=== PATIENT | male | born 1955 | race Caucasian/White ===

== ENCOUNTER 2023-01-17 19:06 | Inpatient (IN) | payer OTHER ==
[~2023-01-17] VITALS: Ht 190.5 cm; Wt 97.5 kg
[2023-01-17 20:02] VITALS: BP 112/59; PULSE 98; RESP 18; TEMP 102.1; O2SAT 97
[2023-01-17] MEDS ORDERED: ACETAMINOPHEN 325 MG TAB PO ONE ×3 (20:15→20:35)
[2023-01-17] MEDS ORDERED: ACETAMINOPHEN EXTRA STRENGTH 500 MG TAB ONE (20:19)
[2023-01-17] MEDS ORDERED: VANCOMYCIN 1,000 MG in DEXTROSE 5% 250 ML IV ONE (20:50)
[2023-01-17] MEDS ORDERED: NACL 0.9% 2,000 ML IV ONE (21:25)
[2023-01-17] MEDS ORDERED: cefTRIAXone 1,000 MG VIAL ONE (21:41)
[2023-01-17 21:42] LABS: BASOPHILS % (AUTO) 0.3 % (0.0-2.0); EOSINOPHILS % (AUTO) 0.1 % (0.0-4.0); HEMATOCRIT 34.9 % (36-52); HEMOGLOBIN 11.6 g/dL (12.0-18.0); LYMPHOCYTES # (AUTO) 0.3 K/uL (2.0-11.5); LYMPHOCYTES % (AUTO) 4.9 % (20.5-51.1); MEAN CORPUSCULAR HEMOGLOBIN 28 pg (27-31); MEAN CORPUSCULAR HGB CONC 33 g/dL (33-37); MEAN CORPUSCULAR VOLUME 83.2 fL (80-94); MONOCYTES # (AUTO) 0.5 K/uL (0.8-1.0); MONOCYTES % (AUTO) 7.4 % (1.7-9.3); NEUTROPHILS # (AUTO) 5.5 K/uL (1.8-7.7); NEUTROPHILS % (AUTO) 87.3 % (42.2-75.2); PLATELET COUNT (AUTO) 230 K/uL (140-450); RED CELL DISTRIBUTION WIDTH 14.2 % (11.6-13.7); WHITE BLOOD COUNT (AUTO) 6.3 K/uL (4.8-10.8)
[2023-01-17 22:08] LABS: ALBUMIN 2.6 g/dL (3.4-5.0); ANION GAP 20.8 (8-16); CALCIUM 8.3 mg/dL (8.5-10.1); CARBON DIOXIDE 19.3 mmol/L (21-32); CREATININE 1.3 mg/dL (0.6-1.3); POTASSIUM 4.1 mmol/L (3.5-5.1); TOTAL BILIRUBIN 0.8 mg/dL (0.0-1.0); TOTAL PROTEIN, SERUM 7.3 g/dL (6.4-8.2)
[2023-01-17] MEDS ORDERED: VANCOMYCIN 1,000 MG VIAL ONE (22:15)
[2023-01-17 22:19] LABS: LACTIC ACID 2.2 mmol/L (0.4-2.0)
[2023-01-17] MEDS ORDERED: MAGNESIUM OXIDE 400 MG TAB PO PRN (22:35)
[2023-01-17] MEDS ORDERED: ACETAMINOPHEN 325 MG TAB PO PRN (22:35)
[2023-01-17] MEDS ORDERED: MAG SULF 2000 MG/WATER PREMIX 50 ML IV PRN (22:35)
[2023-01-17] MEDS ORDERED: ONDANSETRON 4 MG/2 ML VIAL IVP PRN (22:35)
[2023-01-17] MEDS ORDERED: KCL 20 MEQ IN 100 mL PREMIX 200 ML IV PRN (22:35)
[2023-01-17] MEDS ORDERED: POTASSIUM CHLORIDE 10 MEQ TABER PO PRN (22:35)
[2023-01-17] MEDS ORDERED: VANCOMYCIN PER PHARMACY MC PRN (22:35)
[2023-01-17] MEDS ORDERED: DEXTROSE 50% 50 ML SYR IVP PRN (22:45)
[2023-01-17] MEDS: NACL 0.9% 1,000 ML IV SCH (23:00)
[2023-01-18] MEDS: HYDROcodone/APAP 5/325 MG 1 TAB TAB PO PRN ×2 (00:22→04:23)
[2023-01-18 07:25] LABS: BASOPHILS % (AUTO) 0.3 % (0.0-2.0); HEMATOCRIT 32.8 % (36-52); HEMOGLOBIN 10.9 g/dL (12.0-18.0); LYMPHOCYTES # (AUTO) 0.2 K/uL (2.0-11.5); LYMPHOCYTES % (AUTO) 4.7 % (20.5-51.1); MEAN CORPUSCULAR HEMOGLOBIN 28 pg (27-31); MEAN CORPUSCULAR HGB CONC 33 g/dL (33-37); MEAN CORPUSCULAR VOLUME 83.4 fL (80-94); MONOCYTES # (AUTO) 0.5 K/uL (0.8-1.0); NEUTROPHILS # (AUTO) 4.1 K/uL (1.8-7.7); PLATELET COUNT (AUTO) 182 K/uL (140-450); RED BLOOD CELL COUNT(AUTO) 3.93 MIL/uL (4.20-6.10); RED CELL DISTRIBUTION WIDTH 14.3 % (11.6-13.7); WHITE BLOOD COUNT (AUTO) 4.8 K/uL (4.8-10.8)
[2023-01-18] MEDS: BLOOD GLUCOSE MONITORING 1 DEV DEV FS SCH ×4 (07:30→21:00)
[2023-01-18 08:25] LABS: ALBUMIN 2.2 g/dL (3.4-5.0); ANION GAP 19.5 (8-16); CALCIUM 7.6 mg/dL (8.5-10.1); CARBON DIOXIDE 18.4 mmol/L (21-32); MAGNESIUM 1.8 mg/dL (1.8-2.4); POTASSIUM 3.9 mmol/L (3.5-5.1); TOTAL BILIRUBIN 0.5 mg/dL (0.0-1.0); TOTAL PROTEIN, SERUM 6.4 g/dL (6.4-8.2)
[2023-01-18] MEDS: MORPHINE SULFATE 4 MG/ML SYR IVP PRN ×2 (08:36→17:43)
[2023-01-18] MEDS: NACL 0.9% 1,000 ML IV SCH ×2 (11:05→23:35)
[2023-01-18] MEDS ORDERED: VANCOMYCIN 1,000 MG VIAL ONE ×2 (11:22→23:15)
[2023-01-18] MEDS: VANCOMYCIN 1,000 MG in DEXTROSE 5% 250 ML IV SCH ×2 (12:00→23:00)
[2023-01-18] MEDS: INSULIN LISPRO SLIDING SCALE 100 UNITS/ML VIAL SUBQ PRN ×3 (12:15→22:36)
[2023-01-19] MEDS ORDERED: PIPERACILLIN/TAZOBACTAM 3.375 GM VIAL IV ONE ×2 (00:01→06:16)
[2023-01-19] MEDS: PIPERACILLIN/TAZOBACTAM 3.375 GM in DEXTROSE 5% 50 ML IV SCH ×5 (00:25→23:33)
[2023-01-19] MEDS: MORPHINE SULFATE 4 MG/ML SYR IVP PRN ×6 (00:26→23:30)
[2023-01-19 07:52] LABS: BASOPHILS % (AUTO) 0.1 % (0.0-2.0); HEMATOCRIT 33.9 % (36-52); HEMOGLOBIN 11.3 g/dL (12.0-18.0); LYMPHOCYTES # (AUTO) 0.4 K/uL (2.0-11.5); LYMPHOCYTES % (AUTO) 7.1 % (20.5-51.1); MEAN CORPUSCULAR HEMOGLOBIN 28 pg (27-31); MEAN CORPUSCULAR HGB CONC 33 g/dL (33-37); MEAN CORPUSCULAR VOLUME 83.1 fL (80-94); MONOCYTES # (AUTO) 0.8 K/uL (0.8-1.0); MONOCYTES % (AUTO) 14.4 % (1.7-9.3); NEUTROPHILS # (AUTO) 4.5 K/uL (1.8-7.7); NEUTROPHILS % (AUTO) 78.4 % (42.2-75.2); PLATELET COUNT (AUTO) 187 K/uL (140-450); RED BLOOD CELL COUNT(AUTO) 4.07 MIL/uL (4.20-6.10); RED CELL DISTRIBUTION WIDTH 14.4 % (11.6-13.7); WHITE BLOOD COUNT (AUTO) 5.8 K/uL (4.8-10.8)
[2023-01-19 08:00] VITALS: RESP 18; O2SAT 98
[2023-01-19] MEDS: INSULIN LISPRO SLIDING SCALE 100 UNITS/ML VIAL SUBQ PRN ×2 (08:00→20:22)
[2023-01-19] MEDS: BLOOD GLUCOSE MONITORING 1 DEV DEV FS SCH ×4 (08:13→20:25)
[2023-01-19 08:16] LABS: ALBUMIN 2.2 g/dL (3.4-5.0); ANION GAP 18.9 (8-16); CALCIUM 8.2 mg/dL (8.5-10.1); CARBON DIOXIDE 19.9 mmol/L (21-32); CREATININE 0.9 mg/dL (0.6-1.3); MAGNESIUM 1.9 mg/dL (1.8-2.4); POTASSIUM 3.8 mmol/L (3.5-5.1); TOTAL BILIRUBIN 0.6 mg/dL (0.0-1.0)
[2023-01-19 08:51] LABS: TOTAL PROTEIN, SERUM 6.4 g/dL (6.4-8.2)
[2023-01-19] MEDS: NACL 0.9% 1,000 ML IV SCH ×2 (12:05→23:34)
[2023-01-19 16:00] VITALS: BP 132/77; PULSE 79; RESP 18; TEMP 97.7; O2SAT 94
[2023-01-19] MEDS: VANCOMYCIN 1.25GM PREMIX 250 ML IV SCH (16:49)
[2023-01-19 20:00] VITALS: BP 130/70; PULSE 77; RESP 18; TEMP 97.6; O2SAT 97
[2023-01-19] MEDS: HYDROcodone/APAP 5/325 MG 1 TAB TAB PO PRN (20:04)
[2023-01-20] MEDS: VANCOMYCIN 1.25GM PREMIX 250 ML IV SCH ×2 (01:15→12:56)
[2023-01-20] MEDS: MORPHINE SULFATE 4 MG/ML SYR IVP PRN ×4 (03:49→21:11)
[2023-01-20] MEDS: PIPERACILLIN/TAZOBACTAM 3.375 GM in DEXTROSE 5% 50 ML IV SCH ×3 (05:11→18:27)
[2023-01-20] MEDS: HYDROcodone/APAP 5/325 MG 1 TAB TAB PO PRN ×3 (05:12→18:51)
[2023-01-20 06:00] LABS: BASOPHILS % (AUTO) 0.2 % (0.0-2.0); EOSINOPHILS % (AUTO) 0.3 % (0.0-4.0); HEMATOCRIT 32.9 % (36-52); LYMPHOCYTES # (AUTO) 0.5 K/uL (2.0-11.5); LYMPHOCYTES % (AUTO) 7.9 % (20.5-51.1); MEAN CORPUSCULAR HEMOGLOBIN 28 pg (27-31); MEAN CORPUSCULAR HGB CONC 33 g/dL (33-37); MEAN CORPUSCULAR VOLUME 83.3 fL (80-94); MONOCYTES # (AUTO) 0.9 K/uL (0.8-1.0); MONOCYTES % (AUTO) 14.9 % (1.7-9.3); NEUTROPHILS # (AUTO) 4.7 K/uL (1.8-7.7); NEUTROPHILS % (AUTO) 76.7 % (42.2-75.2); PLATELET COUNT (AUTO) 195 K/uL (140-450); RED BLOOD CELL COUNT(AUTO) 3.96 MIL/uL (4.20-6.10); RED CELL DISTRIBUTION WIDTH 14.5 % (11.6-13.7); WHITE BLOOD COUNT (AUTO) 6.1 K/uL (4.8-10.8)
[2023-01-20 06:06] LABS: ANION GAP 16.1 (8-16); CALCIUM 8.1 mg/dL (8.5-10.1); CARBON DIOXIDE 21.8 mmol/L (21-32); CREATININE 0.8 mg/dL (0.6-1.3); MAGNESIUM 1.8 mg/dL (1.8-2.4); POTASSIUM 3.9 mmol/L (3.5-5.1); TOTAL BILIRUBIN 0.6 mg/dL (0.0-1.0); TOTAL PROTEIN, SERUM 6.2 g/dL (6.4-8.2)
[2023-01-20] MEDS: BLOOD GLUCOSE MONITORING 1 DEV DEV FS SCH ×4 (06:17→20:55)
[2023-01-20 08:00] VITALS: BP 139/73; PULSE 84; RESP 20; TEMP 98.9; O2SAT 91
[2023-01-20 09:03] VITALS: PULSE 72; RESP 20; O2SAT 99
[2023-01-20] MEDS: NACL 0.9% 1,000 ML IV SCH (12:57)
[2023-01-20 16:00] VITALS: BP 149/76; PULSE 83; RESP 20; TEMP 97.8; O2SAT 91
[2023-01-20] MEDS: INSULIN LISPRO SLIDING SCALE 100 UNITS/ML VIAL SUBQ PRN ×2 (16:58→21:09)
[2023-01-20] MEDS: CYCLOBENZAPRINE 10 MG TAB PO SCH (17:10)
[2023-01-20 20:00] VITALS: BP 153/69; PULSE 92; PULSE 97; RESP 17; TEMP 98.3; O2SAT 95; O2SAT 98
[2023-01-21] VITALS: BP 140/63; PULSE 92; RESP 17; TEMP 98.5; O2SAT 98
[2023-01-21] MEDS: NACL 0.9% 1,000 ML IV SCH ×2 (01:35→14:05)
[2023-01-21] MEDS: VANCOMYCIN 1.25GM PREMIX 250 ML IV SCH (03:34)
[2023-01-21] MEDS: MORPHINE SULFATE 4 MG/ML SYR IVP PRN ×2 (03:41→09:46)
[2023-01-21 04:00] VITALS: BP 160/73; PULSE 92; RESP 17; TEMP 98.5; O2SAT 95
[2023-01-21] MEDS: PIPERACILLIN/TAZOBACTAM 3.375 GM in DEXTROSE 5% 50 ML IV SCH ×5 (05:03→18:32)
[2023-01-21] MEDS: HYDROcodone/APAP 5/325 MG 1 TAB TAB PO PRN ×2 (05:05→15:15)
[2023-01-21 06:01] LABS: BASOPHILS % (AUTO) 0.3 % (0.0-2.0); EOSINOPHILS # (AUTO) 0.1 K/uL (0-0.4); EOSINOPHILS % (AUTO) 0.8 % (0.0-4.0); HEMOGLOBIN 10.9 g/dL (12.0-18.0); LYMPHOCYTES # (AUTO) 0.8 K/uL (2.0-11.5); LYMPHOCYTES % (AUTO) 12.6 % (20.5-51.1); MEAN CORPUSCULAR HEMOGLOBIN 27 pg (27-31); MEAN CORPUSCULAR HGB CONC 33 g/dL (33-37); MEAN CORPUSCULAR VOLUME 82.6 fL (80-94); MONOCYTES # (AUTO) 0.8 K/uL (0.8-1.0); MONOCYTES % (AUTO) 13.3 % (1.7-9.3); NEUTROPHILS # (AUTO) 4.6 K/uL (1.8-7.7); PLATELET COUNT (AUTO) 217 K/uL (140-450); RED CELL DISTRIBUTION WIDTH 14.8 % (11.6-13.7); WHITE BLOOD COUNT (AUTO) 6.4 K/uL (4.8-10.8)
[2023-01-21] MEDS: BLOOD GLUCOSE MONITORING 1 DEV DEV FS SCH ×4 (06:11→21:29)
[2023-01-21 06:35] LABS: ANION GAP 17.3 (8-16); CALCIUM 8.5 mg/dL (8.5-10.1); CARBON DIOXIDE 21.4 mmol/L (21-32); CREATININE 0.8 mg/dL (0.6-1.3); MAGNESIUM 1.6 mg/dL (1.8-2.4); POTASSIUM 3.7 mmol/L (3.5-5.1); TOTAL BILIRUBIN 0.7 mg/dL (0.0-1.0); TOTAL PROTEIN, SERUM 6.1 g/dL (6.4-8.2)
[2023-01-21 08:00] VITALS: BP 148/75; PULSE 84; RESP 20; TEMP 97.8; O2SAT 89; O2SAT 95
[2023-01-21] MEDS: CYCLOBENZAPRINE 10 MG TAB PO SCH ×2 (09:32→13:05)
[2023-01-21] MEDS ORDERED: CRUSHER, PILL MC ONE (09:35)
[2023-01-21] MEDS: INSULIN LISPRO SLIDING SCALE 100 UNITS/ML VIAL SUBQ PRN ×2 (12:53→21:34)
[2023-01-21 20:00] VITALS: BP 141/73; PULSE 87; RESP 17; RESP 18; TEMP 98.6; O2SAT 95; O2SAT 98
[2023-01-21] MEDS ORDERED: VANCOMYCIN 1,000 MG VIAL ONE (21:22)
[2023-01-21] MEDS: carisoprodoL 350 MG TAB PO SCH (21:24)
[2023-01-21] MEDS: MAGNESIUM OXIDE 400 MG TAB PO SCH (21:25)
[2023-01-21] MEDS: VANCOMYCIN 1,000 MG in DEXTROSE 5% 250 ML IV SCH (21:39)
[2023-01-22] MEDS: PIPERACILLIN/TAZOBACTAM 3.375 GM in DEXTROSE 5% 50 ML IV SCH ×4 (00:02→18:15)
[2023-01-22] MEDS: HYDROcodone/APAP 5/325 MG 1 TAB TAB PO PRN ×2 (02:52→14:26)
[2023-01-22] MEDS: NACL 0.9% 1,000 ML IV SCH ×2 (02:56→15:05)
[2023-01-22] MEDS: MORPHINE SULFATE 4 MG/ML SYR IVP PRN (03:37)
[2023-01-22 04:00] VITALS: BP 157/80; PULSE 89; RESP 20; TEMP 98.8; O2SAT 91
[2023-01-22 05:56] LABS: BASOPHILS % (AUTO) 0.5 % (0.0-2.0); EOSINOPHILS # (AUTO) 0.1 K/uL (0-0.4); EOSINOPHILS % (AUTO) 2.4 % (0.0-4.0); HEMATOCRIT 31.1 % (36-52); HEMOGLOBIN 10.3 g/dL (12.0-18.0); LYMPHOCYTES # (AUTO) 0.9 K/uL (2.0-11.5); LYMPHOCYTES % (AUTO) 15.3 % (20.5-51.1); MEAN CORPUSCULAR HEMOGLOBIN 28 pg (27-31); MEAN CORPUSCULAR HGB CONC 33 g/dL (33-37); MONOCYTES # (AUTO) 0.7 K/uL (0.8-1.0); MONOCYTES % (AUTO) 12.1 % (1.7-9.3); NEUTROPHILS % (AUTO) 69.7 % (42.2-75.2); PLATELET COUNT (AUTO) 225 K/uL (140-450); RED BLOOD CELL COUNT(AUTO) 3.74 MIL/uL (4.20-6.10); RED CELL DISTRIBUTION WIDTH 14.6 % (11.6-13.7); WHITE BLOOD COUNT (AUTO) 5.7 K/uL (4.8-10.8)
[2023-01-22] MEDS: BLOOD GLUCOSE MONITORING 1 DEV DEV FS SCH ×4 (06:46→21:40)
[2023-01-22] MEDS: INSULIN LISPRO SLIDING SCALE 100 UNITS/ML VIAL SUBQ PRN ×4 (06:49→21:52)
[2023-01-22 07:06] LABS: ALBUMIN 1.8 g/dL (3.4-5.0); ANION GAP 19.1 (8-16); CALCIUM 8.1 mg/dL (8.5-10.1); CARBON DIOXIDE 20.4 mmol/L (21-32); CREATININE 0.8 mg/dL (0.6-1.3); MAGNESIUM 1.7 mg/dL (1.8-2.4); POTASSIUM 3.5 mmol/L (3.5-5.1); TOTAL BILIRUBIN 0.6 mg/dL (0.0-1.0); TOTAL PROTEIN, SERUM 5.9 g/dL (6.4-8.2)
[2023-01-22 08:30] VITALS: PULSE 85; RESP 20; O2SAT 99
[2023-01-22] MEDS: VANCOMYCIN 1,000 MG in DEXTROSE 5% 250 ML IV SCH (09:38)
[2023-01-22] MEDS: carisoprodoL 350 MG TAB PO SCH ×2 (09:42→21:40)
[2023-01-22] MEDS: MAGNESIUM OXIDE 400 MG TAB PO SCH ×2 (09:43→21:40)
[2023-01-22 12:00] VITALS: BP 150/90; PULSE 78; RESP 16; TEMP 98.9; O2SAT 97
[2023-01-22 20:00] VITALS: BP 140/96; PULSE 90; RESP 16; RESP 20; TEMP 98; O2SAT 97; O2SAT 99
[2023-01-22] MEDS: NAFCILLIN 2,000 MG in DEXTROSE 5% 100 ML IV SCH (20:58)
[2023-01-23] MEDS: NAFCILLIN 2,000 MG in DEXTROSE 5% 100 ML IV SCH ×7 (01:55→23:54)
[2023-01-23] MEDS: NACL 0.9% 1,000 ML IV SCH ×2 (03:35→16:00)
[2023-01-23 04:00] VITALS: BP 133/95; PULSE 88; RESP 18; TEMP 98.7; O2SAT 96
[2023-01-23] MEDS: BLOOD GLUCOSE MONITORING 1 DEV DEV FS SCH ×4 (06:17→20:16)
[2023-01-23 07:24] LABS: HEMATOCRIT 32.1 % (36-52); HEMOGLOBIN 10.8 g/dL (12.0-18.0); MEAN CORPUSCULAR HEMOGLOBIN 28 pg (27-31); MEAN CORPUSCULAR HGB CONC 34 g/dL (33-37); MEAN CORPUSCULAR VOLUME 83.2 fL (80-94); PLATELET COUNT (AUTO) 259 K/uL (140-450); RED BLOOD CELL COUNT(AUTO) 3.87 MIL/uL (4.20-6.10); RED CELL DISTRIBUTION WIDTH 14.4 % (11.6-13.7)
[2023-01-23 07:45] LABS: ANION GAP 17.4 (8-16); CALCIUM 8.3 mg/dL (8.5-10.1); CARBON DIOXIDE 25.3 mmol/L (21-32); CREATININE 0.7 mg/dL (0.6-1.3); POTASSIUM 4.7 mmol/L (3.5-5.1)
[2023-01-23 07:55] VITALS: PULSE 89; RESP 20; O2SAT 99
[2023-01-23 08:00] VITALS: BP 160/84; PULSE 77; RESP 20; TEMP 97.9; O2SAT 96
[2023-01-23 08:50] LABS: BASOPHILS % (MANUAL) 0 % (0-2); BLASTS, MANUAL % 0 % (0-0); EOSINOPHILS % (MANUAL) 2 % (0-4); LYMPHOCYTES % (MANUAL) 16 % (20-46); METAMYELOCYTES % 0 % (0-0); MONOCYTES % (MANUAL) 10 % (5-12); MYELOCYTES % 0 % (0-0); OTHER CELLS,MANUAL % 0 (0-0); PLATELET ESTIMATE ADEQUATE; PROMYELOCYTES % 0 % (0-0)
[2023-01-23] MEDS: carisoprodoL 350 MG TAB PO SCH ×2 (09:27→20:08)
[2023-01-23] MEDS: MAGNESIUM OXIDE 400 MG TAB PO SCH ×2 (09:27→20:08)
[2023-01-23] MEDS: INSULIN LISPRO SLIDING SCALE 100 UNITS/ML VIAL SUBQ PRN ×3 (12:22→20:14)
[2023-01-23 16:00] VITALS: BP 168/90; PULSE 81; RESP 18; TEMP 97.6; O2SAT 96
[2023-01-23 20:00] VITALS: BP 151/81; PULSE 96; RESP 19; TEMP 97.5; O2SAT 95
[2023-01-23] MEDS: HYDROcodone/APAP 5/325 MG 1 TAB TAB PO PRN (23:56)
[2023-01-24 04:00] VITALS: BP 148/80; PULSE 98; RESP 19; TEMP 97.8; O2SAT 96
[2023-01-24] MEDS: NAFCILLIN 2,000 MG in DEXTROSE 5% 100 ML IV SCH ×4 (04:30→17:07)
[2023-01-24] MEDS: NACL 0.9% 1,000 ML IV SCH ×2 (04:38→17:11)
[2023-01-24] MEDS: INSULIN LISPRO SLIDING SCALE 100 UNITS/ML VIAL SUBQ PRN ×4 (06:34→21:22)
[2023-01-24] MEDS: BLOOD GLUCOSE MONITORING 1 DEV DEV FS SCH ×4 (06:35→21:00)
[2023-01-24 07:01] LABS: BASOPHILS % (AUTO) 0.6 % (0.0-2.0); EOSINOPHILS # (AUTO) 0.1 K/uL (0-0.4); EOSINOPHILS % (AUTO) 1.8 % (0.0-4.0); HEMATOCRIT 32.6 % (36-52); HEMOGLOBIN 10.9 g/dL (12.0-18.0); LYMPHOCYTES # (AUTO) 1.2 K/uL (2.0-11.5); LYMPHOCYTES % (AUTO) 20.8 % (20.5-51.1); MEAN CORPUSCULAR HEMOGLOBIN 28 pg (27-31); MEAN CORPUSCULAR HGB CONC 33 g/dL (33-37); MEAN CORPUSCULAR VOLUME 83.3 fL (80-94); MONOCYTES # (AUTO) 0.6 K/uL (0.8-1.0); MONOCYTES % (AUTO) 10.1 % (1.7-9.3); NEUTROPHILS # (AUTO) 3.7 K/uL (1.8-7.7); NEUTROPHILS % (AUTO) 66.7 % (42.2-75.2); PLATELET COUNT (AUTO) 276 K/uL (140-450); RED BLOOD CELL COUNT(AUTO) 3.92 MIL/uL (4.20-6.10); WHITE BLOOD COUNT (AUTO) 5.5 K/uL (4.8-10.8)
[2023-01-24 08:00] VITALS: BP 155/82; PULSE 79; RESP 18; TEMP 97.8; O2SAT 98
[2023-01-24 08:22] VITALS: PULSE 88; RESP 18; O2SAT 98
[2023-01-24] MEDS: MAGNESIUM OXIDE 400 MG TAB PO SCH ×2 (10:24→21:08)
[2023-01-24] MEDS: carisoprodoL 350 MG TAB PO SCH ×2 (10:25→21:08)
[2023-01-24 16:00] VITALS: BP 182/95; PULSE 85; RESP 18; TEMP 98; O2SAT 98
[2023-01-24] MEDS ORDERED: hydrALAZINE 20 MG/ML VIAL IVP PRN (18:35)
[2023-01-24 20:00] VITALS: PULSE 80; RESP 18; O2SAT 98
[2023-01-24] MEDS: METOPROLOL 25 MG TAB PO SCH (21:09)
[2023-01-25] MEDS: NAFCILLIN 2,000 MG in DEXTROSE 5% 100 ML IV SCH ×7 (00:41→21:27)
[2023-01-25 04:00] VITALS: BP 142/76; PULSE 83; RESP 18; TEMP 98; O2SAT 98
[2023-01-25] MEDS: NACL 0.9% 1,000 ML IV SCH ×2 (05:35→17:46)
[2023-01-25 05:45] LABS: BASOPHILS % (AUTO) 0.6 % (0.0-2.0); EOSINOPHILS # (AUTO) 0.1 K/uL (0-0.4); HEMATOCRIT 30.8 % (36-52); HEMOGLOBIN 10.4 g/dL (12.0-18.0); LYMPHOCYTES % (AUTO) 19.5 % (20.5-51.1); MEAN CORPUSCULAR HEMOGLOBIN 28 pg (27-31); MEAN CORPUSCULAR HGB CONC 34 g/dL (33-37); MONOCYTES # (AUTO) 0.4 K/uL (0.8-1.0); MONOCYTES % (AUTO) 9.2 % (1.7-9.3); NEUTROPHILS # (AUTO) 3.3 K/uL (1.8-7.7); NEUTROPHILS % (AUTO) 67.7 % (42.2-75.2); PLATELET COUNT (AUTO) 266 K/uL (140-450); RED BLOOD CELL COUNT(AUTO) 3.71 MIL/uL (4.20-6.10); RED CELL DISTRIBUTION WIDTH 14.7 % (11.6-13.7); WHITE BLOOD COUNT (AUTO) 4.9 K/uL (4.8-10.8)
[2023-01-25] MEDS: BLOOD GLUCOSE MONITORING 1 DEV DEV FS SCH ×4 (07:30→21:34)
[2023-01-25 08:00] VITALS: PULSE 80; RESP 18; O2SAT 98
[2023-01-25] MEDS ORDERED: METOPROLOL 25 MG TAB PO ONE (09:00)
[2023-01-25] MEDS: carisoprodoL 350 MG TAB PO SCH ×2 (09:11→21:37)
[2023-01-25] MEDS: MAGNESIUM OXIDE 400 MG TAB PO SCH ×2 (09:11→21:36)
[2023-01-25] MEDS: METOPROLOL 25 MG TAB PO SCH ×2 (09:11→21:36)
[2023-01-25] MEDS: INSULIN LISPRO SLIDING SCALE 100 UNITS/ML VIAL SUBQ PRN ×4 (11:13→21:53)
[2023-01-25 12:00] VITALS: BP 154/83; PULSE 75; RESP 20; TEMP 98.2; O2SAT 98
[2023-01-25 20:00] VITALS: BP 148/82; PULSE 82; RESP 19; TEMP 98.1; O2SAT 98
[2023-01-26] MEDS: NAFCILLIN 2,000 MG in DEXTROSE 5% 100 ML IV SCH ×7 (00:43→23:54)
[2023-01-26 04:00] VITALS: BP 154/82; PULSE 70; RESP 20; TEMP 98; O2SAT 98
[2023-01-26 05:42] LABS: BASOPHILS % (AUTO) 0.5 % (0.0-2.0); EOSINOPHILS # (AUTO) 0.1 K/uL (0-0.4); EOSINOPHILS % (AUTO) 1.4 % (0.0-4.0); HEMATOCRIT 30.7 % (36-52); HEMOGLOBIN 10.1 g/dL (12.0-18.0); LYMPHOCYTES # (AUTO) 1.1 K/uL (2.0-11.5); LYMPHOCYTES % (AUTO) 19.9 % (20.5-51.1); MEAN CORPUSCULAR HEMOGLOBIN 27 pg (27-31); MEAN CORPUSCULAR HGB CONC 33 g/dL (33-37); MONOCYTES # (AUTO) 0.5 K/uL (0.8-1.0); MONOCYTES % (AUTO) 9.9 % (1.7-9.3); NEUTROPHILS # (AUTO) 3.6 K/uL (1.8-7.7); NEUTROPHILS % (AUTO) 68.3 % (42.2-75.2); PLATELET COUNT (AUTO) 247 K/uL (140-450); RED BLOOD CELL COUNT(AUTO) 3.69 MIL/uL (4.20-6.10); RED CELL DISTRIBUTION WIDTH 14.6 % (11.6-13.7); WHITE BLOOD COUNT (AUTO) 5.3 K/uL (4.8-10.8)
[2023-01-26] MEDS: NACL 0.9% 1,000 ML IV SCH ×2 (06:35→11:26)
[2023-01-26] MEDS: BLOOD GLUCOSE MONITORING 1 DEV DEV FS SCH ×4 (07:03→20:27)
[2023-01-26] MEDS: INSULIN LISPRO SLIDING SCALE 100 UNITS/ML VIAL SUBQ PRN ×4 (07:05→20:26)
[2023-01-26 08:00] VITALS: BP 148/80; PULSE 82; RESP 18; TEMP 97.7; O2SAT 82; O2SAT 98
[2023-01-26] MEDS: carisoprodoL 350 MG TAB PO SCH ×2 (08:59→20:18)
[2023-01-26] MEDS: METOPROLOL 25 MG TAB PO SCH ×2 (09:00→20:18)
[2023-01-26] MEDS: MAGNESIUM OXIDE 400 MG TAB PO SCH ×2 (09:00→20:18)
[2023-01-26 16:00] VITALS: BP 154/82; PULSE 80; RESP 18; TEMP 97.7; O2SAT 98
[2023-01-26 20:00] VITALS: BP 130/60; PULSE 90; RESP 18; TEMP 98.3; O2SAT 95
[2023-01-27] MEDS: NAFCILLIN 2,000 MG in DEXTROSE 5% 100 ML IV SCH ×5 (03:56→21:35)
[2023-01-27 04:00] VITALS: BP 144/67; PULSE 79; RESP 18; TEMP 97.5; O2SAT 95
[2023-01-27] MEDS: NACL 0.9% 1,000 ML IV SCH ×2 (05:27→18:44)
[2023-01-27 05:42] LABS: BASOPHILS % (AUTO) 0.4 % (0.0-2.0); EOSINOPHILS % (AUTO) 0.9 % (0.0-4.0); HEMATOCRIT 29.4 % (36-52); HEMOGLOBIN 9.7 g/dL (12.0-18.0); LYMPHOCYTES % (AUTO) 19.2 % (20.5-51.1); MEAN CORPUSCULAR HEMOGLOBIN 27 pg (27-31); MEAN CORPUSCULAR HGB CONC 33 g/dL (33-37); MEAN CORPUSCULAR VOLUME 82.5 fL (80-94); MONOCYTES # (AUTO) 0.5 K/uL (0.8-1.0); MONOCYTES % (AUTO) 9.9 % (1.7-9.3); NEUTROPHILS # (AUTO) 3.6 K/uL (1.8-7.7); NEUTROPHILS % (AUTO) 69.6 % (42.2-75.2); PLATELET COUNT (AUTO) 217 K/uL (140-450); RED BLOOD CELL COUNT(AUTO) 3.57 MIL/uL (4.20-6.10); WHITE BLOOD COUNT (AUTO) 5.1 K/uL (4.8-10.8)
[2023-01-27] MEDS: BLOOD GLUCOSE MONITORING 1 DEV DEV FS SCH ×4 (06:47→21:00)
[2023-01-27 08:00] VITALS: BP 153/81; PULSE 86; RESP 18; TEMP 97.9; O2SAT 96
[2023-01-27] MEDS: MAGNESIUM OXIDE 400 MG TAB PO SCH ×2 (09:00→20:35)
[2023-01-27] MEDS: carisoprodoL 350 MG TAB PO SCH ×2 (09:00→20:36)
[2023-01-27] MEDS: METOPROLOL 25 MG TAB PO SCH ×2 (09:00→20:36)
[2023-01-27] MEDS ORDERED: fentaNYL citrate 0.05 MG/ML VIAL ONE ×2 (10:00→10:27)
[2023-01-27] MEDS ORDERED: MIDAZOLAM 2 MG/2 ML VIAL ONE ×2 (10:00→10:27)
[2023-01-27] MEDS ORDERED: PROPOFOL 200 MG/20 ML VIAL IV ONE (11:05)
[2023-01-27 12:00] VITALS: BP 122/64; PULSE 81; RESP 18; TEMP 96.9; O2SAT 96
[2023-01-27] MEDS: INSULIN LISPRO SLIDING SCALE 100 UNITS/ML VIAL SUBQ PRN ×3 (12:32→20:43)
[2023-01-27 16:00] VITALS: BP 153/85; PULSE 81; RESP 18; TEMP 97.6; O2SAT 98
[2023-01-27] MEDS ORDERED: [UNRECOGNIZED DRUG - CODE] IV (17:12)
[2023-01-27 20:00] VITALS: PULSE 81; RESP 18; O2SAT 98
[2023-01-28] MEDS: NAFCILLIN 2,000 MG in DEXTROSE 5% 100 ML IV SCH ×3 (01:28→08:20)
[2023-01-28 04:00] VITALS: BP 148/72; PULSE 72; RESP 18; TEMP 97.6; O2SAT 98
[2023-01-28 05:38] LABS: BASOPHILS % (AUTO) 0.2 % (0.0-2.0); EOSINOPHILS # (AUTO) 0.1 K/uL (0-0.4); EOSINOPHILS % (AUTO) 2.1 % (0.0-4.0); LYMPHOCYTES # (AUTO) 0.9 K/uL (2.0-11.5); LYMPHOCYTES % (AUTO) 14.6 % (20.5-51.1); MEAN CORPUSCULAR HEMOGLOBIN 26 pg (27-31); MEAN CORPUSCULAR HGB CONC 31 g/dL (33-37); MEAN CORPUSCULAR VOLUME 83.7 fL (80-94); MONOCYTES # (AUTO) 0.6 K/uL (0.8-1.0); MONOCYTES % (AUTO) 10.7 % (1.7-9.3); NEUTROPHILS # (AUTO) 4.3 K/uL (1.8-7.7); NEUTROPHILS % (AUTO) 72.4 % (42.2-75.2); PLATELET COUNT (AUTO) 224 K/uL (140-450); RED BLOOD CELL COUNT(AUTO) 3.82 MIL/uL (4.20-6.10); RED CELL DISTRIBUTION WIDTH 15.3 % (11.6-13.7)
[2023-01-28] MEDS: INSULIN LISPRO SLIDING SCALE 100 UNITS/ML VIAL SUBQ PRN (06:30)
[2023-01-28] MEDS: BLOOD GLUCOSE MONITORING 1 DEV DEV FS SCH (06:33)
[2023-01-28] MEDS ORDERED: METO25TA PO (07:46)
[2023-01-28] MEDS: METOPROLOL 25 MG TAB PO SCH (08:21)
[2023-01-28] MEDS: MAGNESIUM OXIDE 400 MG TAB PO SCH (08:24)
[2023-01-28] MEDS: NACL 0.9% 1,000 ML IV SCH (08:25)
[2023-01-28 11:19] VITALS: BP 158/79; PULSE 79; RESP 18; TEMP 98.4
== END 2023-01-28 11:50 | DRG 853 ==
LOC: MED 19:06 → MMU 22:45
PROVIDERS: ADMIT Internal Medicine; ATTEND Internal Medicine
PROC: 0QBR0ZZ Excision of Left Toe Phalanx, Open Approach (ICD-10-PCS; principal; 2023-01-20)
PROC: B246ZZ4 Ultrasonography of Right and Left Heart, Transesophageal (ICD-10-PCS; 2023-01-20)
PROC: 02HV33Z Insertion of Infusion Device into Superior Vena Cava, Percutaneous Approach (ICD-10-PCS; 2023-01-20)
PROC: B548ZZA Ultrasonography of Superior Vena Cava, Guidance (ICD-10-PCS; 2023-01-20)
DX: A41.9 Sepsis, unspecified organism (principal); A48.0 Gas gangrene; E44.0 Moderate protein-calorie malnutrition; S82.102A Unspecified fracture of upper end of left tibia, initial encounter for closed fracture; M86.8X7 Other osteomyelitis, ankle and foot; L03.116 Cellulitis of left lower limb; B95.61 Methicillin susceptible Staphylococcus aureus infection as the cause of diseases classified elsewhere; I25.10 Atherosclerotic heart disease of native coronary artery without angina pectoris; I10 Essential (primary) hypertension; E11.69 Type 2 diabetes mellitus with other specified complication; E11.51 Type 2 diabetes mellitus with diabetic peripheral angiopathy without gangrene; W18.39XA Other fall on same level, initial encounter; S82.832A Other fracture of upper and lower end of left fibula, initial encounter for closed fracture; S92.912A Unspecified fracture of left toe(s), initial encounter for closed fracture; Y93.89 Activity, other specified; Y92.89 Other specified places as the place of occurrence of the external cause; Y99.8 Other external cause status; Z68.26 Body mass index [BMI] 26.0-26.9, adult
CPT/HCPCS: 36415; 71045; 73562; 73630; 73700; 80048; 80053; 80202; 82948; 83605; 83735; 85025; 85651; 86140; 87040; 87070; 87075; 87081; 87186; 87205; 93005; 93313; 96365; 96367; 97110; 97112; 97116; 97163-GP; 97530; 99285; J0360; J0696; J1644; J1815; J2250; J2270; J2543; J2704; J3010; J3370; J3372; J3490; J7060; Q0092